=== PATIENT | female | born 1980 | race Caucasian/White ===

== ENCOUNTER 2019-01-01 17:16 | Emergency (ER) | payer OTHER ==
[~2019-01-01] VITALS: Ht 170.2 cm; Wt 94.3 kg
[2019-01-01] MEDS ORDERED: KEFLEX500 MG PO (19:13)
== END 2019-01-01 19:32 | disposition home or self-care (01) ==
LOC: ED 17:16
DX: N39.0 Urinary tract infection, site not specified (principal); K59.00 Constipation, unspecified; Z88.8 Allergy status to other drugs, medicaments and biological substances
CPT/HCPCS: 74018; 80053; 81001; 83690; 85025; 87077; 87088; 87186; 96361; 96374; 99284-25; J1885; J7030

== ENCOUNTER 2019-09-03 08:39 | Day surgery (SDC) | payer OTHER ==
[~2019-09-03] VITALS: Ht 170.2 cm; Wt 83.0 kg
[~2019-09-03 08:39] MED LIST: KEFLEX500 MG PO; MULTI VITAMIN1 EACH PO; NORCO 5-325 TA1 EACH PO
--- NOTE | 2019-09-03 09:22 | NUR ---
PATIENT AMBULATED TO ROOM WITH , REPORTS PAIN CHRONICALLY AT A 4 IN RIGH R SIDE. ANSWERED QUESTIONS AND CONCERNS. CALL LIGHT WITHIN REACH.
--- NOTE | 2019-09-03 15:34 | NUR ---
PATIENT CONTINUES TO WAIT TO GO BACK TO OR FOR SURGERY. PATIENT SEWING IN ROOM FAMILY AT BEDSIDE. CALL LIGHT WITHIN REACH, NO OTHER NEEDS AT THIS TIME.
--- NOTE | 2019-09-03 17:35 | NUR ---
09/03/19 1735 Lillian Acuna 1723- PT ARRIVES TO PACU NONAROUSABLE TO NOXIOUS STIMULI. RESP EVEN AND UNLABORED. PT IS SNORING AND NEEDS A JAW LIFT TO MAINTAIN A CLEAR AIRWAY. OXYGEN SAT HIGH 90'S TO 100% ON 6L VIA MASK. 1726- PT'S HEAD POSITIONED TO HER LEFT SIDE. SNORING CLEARED. JAW LIFT STOPPED.
[2019-09-03] MEDS ORDERED: IBUPROFEN600 MG PO (17:36)
[2019-09-03] MEDS ORDERED: TYLENOL EXTRA500 MG PO (17:37)
[2019-09-03] MEDS ORDERED: OXYCODON-ACETA1 EAC2 PO (17:37)
--- NOTE | 2019-09-03 18:05 | NUR ---
PT TO ROOM 114 FROM PACU AT THIS TIME. ALERT AND ORIENTED NO DISTRESS NOTED. PT FAMILY IN ROOM
--- NOTE | 2019-09-03 18:14 | NUR ---
pt up to bathroom at this time. one person sba.
--- NOTE | 2019-09-03 18:42 | NUR ---
PT REPORTS 7/10 PAIN AND REPORTS THAT SHE HAS HAD PERCOCET BEFORE WITH OUT ISSUE. 1 TAB PO PERCOCET GIVEN AT THIS TIME.
--- NOTE | 2019-09-03 19:20 | NUR ---
REPORT RECEIVED FROM DAY SHIFT RN. PT LYING IN BED, ALERT AND ORIENTED. DENIES PAIN OR NAUSEA. SCD'S IN PLACE. DENIES FURTER NEEDS AT THIS TIME. CALL LIGHT IN REACH.
--- NOTE | 2019-09-03 19:54 | NUR ---
PT UP AMBULATING IN [place] WITH ASSISTANCE FROM FRIEND. STATES SHE FEELS STEADY ON HER FEET. APPLE JUICE GIVEN PER PT REQUEST.
--- NOTE | 2019-09-03 20:20 | NUR ---
PT RESTING IN BED, DROWSY BUT AWAKENS EASILY TO VOICE. SIGNIFICANT OTHER AT BEDSIDE. PT STATES SHE AMBULATED TO THE BR TO VOID WITH HELP FROM SO. SCOPE SITES X 3 WITH SOME DRAINAGE NOTED ON STERI-STRIPS. REINFORCED WITH GAUZE AND PAPER TAPE. UMBILICAL SITE COVERED WITH BANDAID, CDI. ABD SOFT, PT DENIES NAUSEA. STATES PAIN IS A 6/10 BUT WILL WAIT FOR ADDITIONAL PAIN MED UNTIL SHE PICKS UP HER SCRIPT FROM THE PHARMACY. NO OTHER QUESTIONS OR CONCERNS AT THIS TIME.
--- NOTE | 2019-09-03 20:50 | NUR ---
DISCHARGE INSTRUCTIONS GIVEN. PT AND SIGNIFICANT OTHER STATE THEY UNDERSTAND DISCHARGE INSTRUCTIONS, DENY ANY FURTHER QUESTIONS. SL REMOVED, TIP IN TACT. SCOPE SITES X 3 REINFORCED WITH GAUZE AND PAPER TAPE. UMBILICUS DRESSING CDI. PT DENIES NAUSEA. PAIN IS ACCEPTABLE AT THIS TIME. WARM BLANKETS AND APPLE JUICE GIVEN UPON DISCHARGE. [employer] WHEELED PT OUT TO CAR WHERE SIGNIFICANT OTHER WAS WAITING.
--- NOTE | 2019-09-04 08:56 | OR ---
[facility] [address] [place], [place] [address] Signed DATE OF OPERATION: 09/03/2019 SURGEON: Ed Sharp MD PREOPERATIVE DIAGNOSES: 1. Chronic calculous cholecystitis. 2. Family history of malignant hyperthermia (two aunts and one uncle). POSTOPERATIVE DIAGNOSES: 1. Chronic calculous cholecystitis. 2. Family history of malignant hyperthermia (two aunts and one uncle). PROCEDURES: 1. Laparoscopic cholecystectomy with intraoperative cholangiogram. 2. Surgeon-directed fluoroscopy. ANESTHESIA: General endotracheal; Ginger Christiane, MANAGING COGNITIVE ENGINEER, and local 10 mL of 0.25% Marcaine with epinephrine. INDICATION: This 39-year-old white woman is a patient of [facility] Goddard. She and her have noted that the patient has had considerable problems for the past many months including weight loss and initially thought at risk for lymphoma. A small lymph node in the left axilla 2.6 cm in size was noted. A CT scan showed no such finding of disseminated adenopathy. Upon close reflection, her symptoms have included abdominal pain, bloating, postprandial pain in the upper abdomen highly consistent with biliary disease. On that basis, her primary provider, Diamond Suh, did obtain a gallbladder ultrasound, which did show what appeared to be adherent stones of the gallbladder. She is considered to have calculous cholecystitis on that basis. She is admitted at this time to undergo cholecystectomy preferred by laparoscopic approach. She understands the risks of bleeding, infection, need for open procedure, common duct injury and most importantly failure to cure her symptoms entirely. She understands that she wished to proceed. Of special note, she mentioned in the preoperative area that she does have family history of malignant hyperthermia. This was in two aunts and one uncle. She has undergone anesthesia in the past, but is uncertain what measures were taken in her case. She has not been tested for malignant hyperthermia. On that basis with close conference with the claims agent right of way, the anesthesia machine has been flushed for a number of hours with pure oxygen so as to minimize chances of cross contaminating gas for an Electronically Signed By: ED SHARP MD 09/04/19 0856 PATIENT NAME: ANAMIKA WILLINGHAM OPERATIVE REPORT DATE OF : 76 REPORT #: [id number] PHYSICIAN: ED SHARP MD PCP: DIAMOND SUH PA-C REPORT IS CONFIDENTIAL AND NOT TO BE RELEASED WITHOUT AUTHORIZATION [facility] [address], [place] [address] Signed unknown, but possible risk for malignant hyperthermia herself. FINDINGS: She had no evidence pre, intra, or postoperatively of malignant hyperthermia. Inspection of the gallbladder did show to be chronically inflamed and once excised showed several cholesterol stones that were adherent to the mucosa and chronic inflammatory change of mucosa itself. Cholangiogram was normal. Liver was normal. No other findings of concern. DESCRIPTION OF PROCEDURE: The patient was brought to the operating room, given a general endotracheal anesthetic. Preoperative antibiotic Ancef was given. Sequential compression device stockings used and heparin subcutaneously administered. The abdomen was clipped and prepared with chlorhexidine solution and draped sterilely. An infraumbilical incision was made and using an open Val cannula technique, pneumoperitoneum was achieved to a level of 14 mmHg of carbon dioxide gas. Intraabdominal inspection showed no sign of ascites or carcinomatosis. The gallbladder was visualized and chronically inflamed. Liver appeared normal. Three additional trocars were placed in usual configuration in the subxiphoid, right midclavicular, and right anterior axillary line. The gallbladder was elevated cephalad and retracted laterally, showing good anatomy. Using blunt and electrocautery dissection, the triangle of Calot was dissected free identifying well the cystic duct which was relatively long and diminutive. A clip was applied across gallbladder-cystic duct junction and transverse choledochotomy made in the cystic duct. Egress of clear bile was noted upon retrograde milking of the duct. Using an Newton type cholangiocatheter, intraoperative cholangiography was undertaken showing free flow of contrast in biliary tree with prompt emptying into the duodenum. Retrograde filling to the common hepatic duct was noted. Extensive arborization of the biliary tree was not noted as there was profound antegrade flow through the ampulla. The catheter was removed and the cystic duct was triply clipped and divided. The gallbladder was then dissected free in a retrograde fashion using electrocautery. The gallbladder was extracted through the infraumbilical port site without problem, opened on the back table and found to have several bits of yellow cholesterol debris type stones. Chronic and subacute inflammatory changes of mucosa was noted as well. There was no sign of neoplasm. Irrigation was undertaken in subhepatic space showed no sign of bleeding, bile leak, or other problems. Trocars were then removed under direct visualization showing no sign of bleeding. The infraumbilical fascial incision was reapproximated with interrupted 0 Vicryl suture. All wounds were copiously irrigated with saline solution. Skin closed with interrupted 3-0 Vicryl. Steri-Strips were Electronically Signed By: ED SHARP MD 09/04/19 0856 PATIENT NAME: ANAMIKA WILLINGHAM OPERATIVE REPORT DATE OF : [birth year] REPORT #: [id number] PHYSICIAN: ED SHARP MD PCP: DIAMOND SUH PA-C REPORT IS CONFIDENTIAL AND NOT TO BE RELEASED WITHOUT AUTHORIZATION [facility] [address] [place] [address] Signed applied. The patient was ultimately extubated and transferred to recovery room in good condition and having suffered no complications. Sponge, needle, and instrument counts were reported as correct x3. MD KENYON Srinivasan/MARY /[id number] cc: Diamond Suh PA-C Copies: DIAMOND SUH PA-C ~ Electronically Signed By: ED SHARP MD 09/04/19 0856 PATIENT NAME: ANAMIKA WILLINGHAM OPERATIVE REPORT DATE OF : [birth year] REPORT #: [id number] PHYSICIAN: ED SHARP MD PCP: DIAMOND SUH PA-C REPORT IS CONFIDENTIAL AND NOT TO BE RELEASED WITHOUT AUTHORIZATION
--- NOTE | 2019-09-06 16:09 | PATH ---
[facility] [address] [place], [place] [address] Signed SPECIMEN(S): A GALLBLADDER SPECIMEN SOURCE: A. GALLBLADDER CLINICAL HISTORY: Calculous cholecystitis. FINAL PATHOLOGIC DIAGNOSIS: Gallbladder, cholecystectomy: - Chronic cholecystitis with polypoid cholesterolosis. NAL:caw:C2NR MICROSCOPIC EXAMINATION: Histologic sections of all submitted blocks are examined by light microscopy. These findings, together with the gross examination, support the pathologic diagnosis. GROSS DESCRIPTION: The specimen is received in a formalin filled specimen container labeled "SW". A previously opened gallbladder is 5.7 x 2 cm. The serosa is smooth and rsoe. The cystic duct surgical margin is patent. The wall averages 0.3 cm. The mucosa is green rose and velvety and has scattered nodular polypoid excrescences ranging from 0.2-0.5 cm. There are no calculi within the lumen, cystic duct or specimen container. Four sales representative education courses sections are submitted in cassette A1. GW (under the direct supervision of a pathologist) The Gross Description was prepared using a voice recognition system. The report was reviewed for accuracy; however, sound-alike word errors, addition and/or deletions may occur. If there is any question about this report, please contact Client Services. PERFORMING LABORATORY: The technical component was performed by [employer], [address] [place] [id number] (Recovery Engineer: Gina Alfaro MD; CLIA# [id number]). [facility] [address] [address] (Recovery Engineer: Meliton Monk MD; CLIA# [id number]). Diagnostician: Abbi Enamorado MD PATIENT NAME: ANAMIKA WILLINGHAM PATHOLOGY DATE OF : [birth year] REPORT #: [id number] PHYSICIAN: [facility] PCP: SHIVA ROJAS PA-C REPORT IS CONFIDENTIAL AND NOT TO BE RELEASED WITHOUT AUTHORIZATION [address] [address] Signed Pathologist Electronically Signed 09/06/2019 Copies: ~ PATIENT NAME: ANAMIKA WILLINGHAM PATHOLOGY DATE OF : 76 REPORT #: [id number] PHYSICIAN: [facility] PCP: SHIVA ROJAS PA-C REPORT IS CONFIDENTIAL AND NOT TO BE RELEASED WITHOUT AUTHORIZATION
== END 2019-09-03 20:45 | disposition home or self-care (01) ==
LOC: DS 08:39 → MS 18:00 → DS 20:45
PROVIDERS: Surgery
PROC: BF13YZZ Fluoroscopy of Gallbladder and Bile Ducts using Other Contrast (ICD-10-PCS; 2019-09-03)
PROC: 0FT44ZZ Resection of Gallbladder, Percutaneous Endoscopic Approach (ICD-10-PCS; principal; 2019-09-03 11:30)
DX: K81.1 Chronic cholecystitis (principal); J45.909 Unspecified asthma, uncomplicated; I10 Essential (primary) hypertension; R63.4 Abnormal weight loss; F32.9 Major depressive disorder, single episode, unspecified; Z88.8 Allergy status to other drugs, medicaments and biological substances
CPT/HCPCS: 00790; 74300; 80053; 82247; 82465; 83615; 84100; 84478; 84550; 85025; J0690; J1100; J1644; J1885; J2250; J2270; J2405; J2704; J3475; J7121; Q9967

== ENCOUNTER 2021-04-13 14:58 | Emergency (ER) | payer OTHER ==
[~2021-04-13] VITALS: Ht 170.2 cm; Wt 83.0 kg
[~2021-04-13 14:58] MED LIST changes: +IBUPROFEN600 MG PO; +OXYCODON-ACETA1 EAC2 PO; +TYLENOL EXTRA500 MG PO
--- OUTSIDE RECORDS SUMMARY | 2021-04-13 15:00 | XMS ---
PreManage Notification: ANAMIKA WILLINGHAM Security Rocket Scientist Events No recent Security Events currently on file CRITERIA MET - PDMP CARE PROVIDERS MECHELLE SUN [facility] Medicine: Geriatric Medicine Current PHONE: Unknown Oksana has no Care Guidelines for this patient. EShen VISIT COUNT (12 MO.) 1 [facility] TOTAL 1 NOTE: Visits indicate total known visits. ED/UCC VISIT TRACKING (12 MO.) 04/13/2021 14:58 [facility] [place] TYPE: Emergency COMPLAINT: - ABD PAIN INPATIENT VISIT TRACKING (12 MO.) No inpatient visits to display in this time frame [email or web address]
[2021-04-13] MEDS ORDERED: NEURONTIN300 MG PO (15:45)
[2021-04-13] MEDS ORDERED: AMITRIPTYLINE H25 MG PO (15:47)
== END 2021-04-13 19:44 | disposition home or self-care (01) ==
LOC: ED 14:58
DX: N20.0 Calculus of kidney (principal); Z87.891 Personal history of nicotine dependence; Z88.8 Allergy status to other drugs, medicaments and biological substances; Z79.899 Other long term (current) drug therapy
CPT/HCPCS: 74177; 80053; 81001; 83690; 85025; 96375; 99284-25; J1170; J2405; J7030; Q9967

== ENCOUNTER 2021-06-12 09:23 | Emergency (ER) | payer OTHER ==
[~2021-06-12] VITALS: Ht 170.2 cm; Wt 73.9 kg
[~2021-06-12 09:23] MED LIST changes: +AMITRIPTYLINE H25 MG PO; +NEURONTIN300 MG PO
--- OUTSIDE RECORDS SUMMARY | 2021-06-12 09:26 | XMS ---
PreManage Notification: ANAMIKA WILLINGHAM Security Shoe Folder Events No recent Security Events currently on file CRITERIA MET - PDMP CARE PROVIDERS STEPHEN DEGROOT [facility] 04/15/2021-Current PHONE: [phone] MECHELLE SUN [facility] Medicine: Geriatric Medicine Current PHONE: Unknown Oksana has no Care Guidelines for this patient. Abdullahi VISIT COUNT (12 MO.) [facility]ony [facility] TOTAL 2 NOTE: Visits indicate total known visits. ED/UCC VISIT TRACKING (12 MO.) 06/12/2021 09:23 [facility] TYPE: Emergency COMPLAINT: - ABD PAIN, VOMITING 04/13/2021 14:58 [facility] [place] TYPE: Emergency COMPLAINT: - ABD PAIN DIAGNOSES: - Personal history of nicotine dependence - Unspecified abdominal pain - Allergy status to other drugs, medicaments and biological substances - Calculus of kidney - Other residential (current) drug therapy INPATIENT VISIT TRACKING (12 MO.) No inpatient visits to display in this time frame [email or web address]
[2021-06-12] MEDS ORDERED: DILAUDID2 MG PO (17:45)
[2021-06-12] MEDS ORDERED: ZOFRAN4 MG PO (17:45)
[2021-06-12] MEDS ORDERED: DICYCLOMINE HCL10 MG PO (17:45)
== END 2021-06-12 17:55 | disposition home or self-care (01) ==
LOC: ED 09:23
DX: R10.10 Upper abdominal pain, unspecified (principal); E87.6 Hypokalemia; M79.7 Fibromyalgia; Z87.891 Personal history of nicotine dependence; Z20.822 Contact with and (suspected) exposure to COVID-19; Z79.899 Other long term (current) drug therapy; Z88.8 Allergy status to other drugs, medicaments and biological substances
CPT/HCPCS: 74174; 80053; 81001; 83690; 83735; 84703; 85025; 96375; 96376; 99284-25; J1170; J1200; J2405; Q9967; U0003

== ENCOUNTER 2021-12-20 00:10 | Emergency (ER) | payer OTHER ==
[~2021-12-20] VITALS: Ht 170.2 cm; Wt 66.7 kg
[~2021-12-20 00:10] MED LIST changes: +BUPRENORPHINE HC2 MG SL; +BUPROPION XL150 MG PO; +DICYCLOMINE HCL10 MG PO; +DILAUDID2 MG PO; +DOTTI1 EAC4 TD; +ZOFRAN4 MG PO
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
[2021-12-20] MEDS ORDERED: PERCOCET 5-3251 EACH PO (03:11)
== END 2021-12-20 03:42 | disposition home or self-care (01) ==
LOC: ED 00:10
DX: S32.019A Unspecified fracture of first lumbar vertebra, initial encounter for closed fracture (principal); Z87.891 Personal history of nicotine dependence; Z88.8 Allergy status to other drugs, medicaments and biological substances; Z79.899 Other long term (current) drug therapy; Z20.822 Contact with and (suspected) exposure to COVID-19; V48.5XXA Car driver injured in noncollision transport accident in traffic accident, initial encounter
CPT/HCPCS: 36415; 70450; 72125; 72131; 74177; 80048; 84703; 85025; 85610; 96374; 96375; 99284-25; C9803; J1170; J1790; J2405; J3010; Q9967; U0003

== ENCOUNTER 2023-11-14 06:07 | Day surgery (SDC) | payer OTHER ==
[~2023-11-14] VITALS: Ht 170.2 cm; Wt 68.1 kg
[~2023-11-14 06:07] MED LIST changes: +ESTRACE1 MG PO; +IMITREX100 MG PO; +LACTATED RINGER'S 1,000 ML IV SCH; +LAMICTAL150 MG PO; +PERCOCET 5-3251 EACH PO
[2023-11-14] MEDS ORDERED: MINIPRESS2 MG (06:34)
[2023-11-14 06:47] VITALS: BP 105/77
[2023-11-14] MEDS ORDERED: iopamidoL 30 ML VIAL ONE (06:53)
[2023-11-14] MEDS ORDERED: LIDOCAINE HCL 1% 5 ML SDV INJ ONE (07:00)
[2023-11-14] MEDS ORDERED: levoFLOXacin 500 MG/100 ML BAG IV SCH (07:00)
[2023-11-14] MEDS ORDERED: IBLOOD GLUCOSE TEST STRIP 1 EA TEST VI PRN ×2 (07:00→08:00)
[2023-11-14] MEDS ORDERED: KETOROLAC TROMETHAMINE 30 MG/ML VIAL ONE (07:13)
[2023-11-14] MEDS ORDERED: LIDOCAINE HCL 2% 20 MG/ML VIAL INJ ONE (07:13)
[2023-11-14] MEDS ORDERED: MIDAZOLAM HCL 2 MG/2 ML VIAL ONE (07:13)
[2023-11-14] MEDS ORDERED: DEXAMETHASONE SOD PHOS 4 MG/ML VIAL ONE (07:13)
[2023-11-14] MEDS ORDERED: propofoL 200 MG/20 ML VIAL ONE ×2 (07:13→08:27)
[2023-11-14] MEDS ORDERED: ondansetron HCL 4 MG/2 ML VIAL ONE (07:13)
[2023-11-14] MEDS ORDERED: ACETAMINOPHEN 1,000 MG/100 ML VIAL ONE (07:13)
[2023-11-14] MEDS ORDERED: fentaNYL citrate 100 MCG/2 ML VIAL ONE (07:14)
[2023-11-14] MEDS ORDERED: KETOROLAC TROMETHAMINE 15 MG/ML VIAL IV PRN (07:30)
[2023-11-14] MEDS ORDERED: OXYCODONE/APAP 5/325 TAB PO PRN (07:30)
[2023-11-14] MEDS ORDERED: PHENAZOPYRIDINE HCL 95 MG TAB PO PRN (07:30)
[2023-11-14] MEDS ORDERED: ondansetron HCL 4 MG/2 ML VIAL IV PRN ×2 (07:30→08:00)
[2023-11-14] MEDS ORDERED: ondansetron HCL 4 MG TAB PO PRN (07:30)
[2023-11-14] MEDS ORDERED: HYDROmorphone HCL 1 MG/ML SYR IV PRN ×2 (07:30→08:00)
[2023-11-14] MEDS ORDERED: KETAMINE in NS 50 MG/5 ML SYR ONE (07:50)
[2023-11-14] MEDS ORDERED: droPERidol 5 MG/2 ML VIAL IV PRN (08:00)
[2023-11-14] MEDS ORDERED: fentaNYL citrate 100 MCG/2 ML VIAL IV PRN (08:00)
[2023-11-14] MEDS ORDERED: NALOXONE HCL 0.4 MG SYR IV PRN (08:00)
[2023-11-14] MEDS ORDERED: LACTATED RINGER'S 1,000 ML IV ONE (08:19)
[2023-11-14 09:18] VITALS: BP 120/86
[2023-11-14 10:05] VITALS: BP 142/94
--- NOTE | 2023-11-14 18:57 | OR ---
[facility] [address] [facility] [place], [place] [address] Signed DATE OF OPERATION: 11/14/2023 SURGEON: Toya Crawford MD PREOPERATIVE DIAGNOSES: 1. Intermittent left flank pain. 2. 4 mm left renal calculus. POSTOPERATIVE DIAGNOSES: 1. Intermittent left flank pain. 2. 4 mm left renal calculus. NAMES OF PROCEDURES: 1. Diagnostic cystoscopy with left retrograde pyelogram. 2. Flexible nephroureteroscopy with basket extraction of left renal calculus. 3. Insertion of a left-sided indwelling double-J ureteral stent. ANESTHESIA: General. ESTIMATED BLOOD LOSS: Minimal. COMPLICATIONS: None. SPECIMENS: Left renal calculus sent to the lab for stone analysis. DRAINS: A 5 x 26 cm double-J ureteral stent inserted into the left collecting system. INDICATIONS FOR PROCEDURE: Veronica is a very pleasant 43-year-old female, who is well-known to me. She has undergone a complicated left ureteroscopy in the past for extraction of a 14 mm renal calculus. In late 2022, the patient contacted me with complaints of severe intermittent left-sided flank pain and nausea. She underwent a CT scan in September 2023, which revealed a 4 mm nonobstructing left renal calculus located in the lower pole of the left kidney. No other significant stones were visualized. At the time I informed the patient that I did not think that this relatively small stone could be causing her flank pain, and so the Electronically Signed By: TOYA CRAWFORD MD 11/14/23 1857 PATIENT NAME: VERONICA WILLINGHAM OPERATIVE REPORT DATE OF : 76 REPORT #: [id number] PHYSICIAN: TOYA CRAWFORD MD PCP: STEPHEN DEGROOT MD REPORT IS CONFIDENTIAL AND NOT TO BE RELEASED WITHOUT AUTHORIZATION [address] [address] Signed patient decided to continue with conservative management. In early October, the patient contacted me requesting elective extraction of her 4 mm left renal calculus. After discussion of the risks and benefits, the patient has agreed to proceed today. OPERATIVE FINDINGS: 1. On cystoscopy, there was no evidence of any suspicious masses, lesions, or stones. Bilateral ureteral orifices are in their normal anatomic location effluxing clear urine. There is diffuse vascularity noted on the bladder wall which could be indicative of cystitis. No bladder wall trabeculation is appreciated. 2. Left retrograde pyelogram revealed a normal left kidney with no evidence of any defects or calyceal blunting. I am unable to appreciate the stone as a filling defect in the left renal pelvis. 3. Left flexible nephroscopy was performed and I did appreciate the 4 mm stone in the lower pole of the left kidney. I saw no other significant stones within the left kidney. Otherwise, also no abnormalities in the left renal pelvis. The 4 mm stone was extracted using a Zero tip basket from the left kidney without incident. 4. At the end of procedure, a 5 x 26 cm double-J ureteral stent was inserted in the left collecting system without difficulty. DESCRIPTION OF PROCEDURE: After informed consent was obtained, the patient was taken back to the operating room. She was transferred from the [facility] to the operating room table, where general anesthesia was induced. She was placed in the dorsal lithotomy position and her genitalia were prepped and draped in standard sterile fashion. Using a 30-degree lens on a 22.5-Botswanan introducer, rigid cystoscope was inserted through the urethra and into her bladder under direct visualization. Panendoscopic views of bladder were then obtained. Please see the above findings. Attention was turned to the left ureteral orifice. I passed a 0.035 Sensor wire into the left ureter and up to the left collecting system. Fluoroscopy confirmed adequate placement of the wire. Over the wire, I passed an 11/13 ureteral access sheath into the left collecting system under fluoroscopic guidance. The sheath passed quite easily up into the left kidney. I injected dye through the sheath and into the left kidney. Please see above findings. Once the retrograde pyelogram was complete, I passed a flexible ureteroscope through the sheath and into the left proximal ureter and left kidney. Please see above findings. I was able to easily visualize a 4 mm stone, which was then basketed using a Zero tip basket. I pulled the basket into the sheath and then removed the entire sheath from the left collecting system. The stone was popped out of the sheath and placed in a specimen cup to be sent to the lab for stone analysis. I reinserted the rigid cystoscope into the patient's bladder and then filled it back up so I could easily visualize her left ureteral orifice. I passed a 0.035 Sensor wire into the left ureter and up the left collecting system. Placement of the wire was confirmed on fluoroscopy. Over the wire, I passed a 5-Botswanan x 26 cm double-J ureteral stent into the left collecting system. Electronically Signed By: TOYA CRAWFORD MD 11/14/23 1857 PATIENT NAME: VERONICA WILLINGHAM OPERATIVE REPORT DATE OF : 76 REPORT #: [id number] PHYSICIAN: TOYA CRAWFORD MD PCP: STEPHEN DEGROOT MD REPORT IS CONFIDENTIAL AND NOT TO BE RELEASED WITHOUT AUTHORIZATION [facility] [address] [place] [address] Signed The string on the stent got caught on the cystoscope, so the stent was passed part way up via fluoroscopic guidance. Once the stent was passed, I was able to appreciate an excellent coil within the left collecting system and a very good coil distally in the bladder. The patient's bladder was then drained and the cystoscope was removed. The string attached to the stent was then secured to the patient's lower abdomen. The procedure was then terminated. The patient tolerated the procedure well without any complication. She will now be transferred to the postanesthesia care unit in stable condition. DISPOSITION: I discussed the details of today's procedure with the patient's , Madelyn, and answered all of her questions. She was notified that the stone was extracted in single step without difficulty, and a stent has been successfully placed in her left collecting system. There is a string attached to the stent. secured to her lower abdomen. The patient will need to remove the stent using the string attached on November 17. The patient will be discharged to home today with oxycodone 5 mg one tablet p.o. q.4-6 hours p.r.n. pain dispense #30 along with Levaquin 500 mg one tablet p.o. daily for a total of 7 days. The patient will be scheduled return to clinic in six weeks for urine check and for a postoperative evaluation. MD LOBITO Barrios/MARY /[id number] Copies: ~ Electronically Signed By: TOYA CRAWFORD MD 11/14/23 1857 PATIENT NAME: VERONICA WILLINGHAM OPERATIVE REPORT DATE OF : 76 REPORT #: [id number] PHYSICIAN: TOYA CRAWFORD MD PCP: STEPHEN DEGROOT MD REPORT IS CONFIDENTIAL AND NOT TO BE RELEASED WITHOUT AUTHORIZATION
--- NOTE | 2023-11-14 23:30 | EKG ---
[facility] [address] [facility] [place], [place] [address] Signed Sinus bradycardia Confirmed by Terry Shoemaker M.D. ([id number]) on 11/14/2023 11:30:13 PM Electronically Signed By: TERRY SHOEMAKER MD 11/14/23 2330 PATIENT NAME: ANAMIKA WILLINGHAM Electrocardiogram DATE OF : 76 PHYSICIAN: TERRY SHOEMAKER MD REPORT #: [id number] REPORT IS CONFIDENTIAL AND NOT TO BE RELEASED WITHOUT AUTHORIZATION
[2023-11-16 21:19] LABS: CALCULI MASS 35 mg (())
== END 2023-11-14 10:20 | disposition home or self-care (01) ==
LOC: DS 06:07 → OPS 06:07 → DS 07:30 → OPS 10:20
PROVIDERS: ATTEND Urology
PROC: 0TC18ZZ Extirpation of Matter from Left Kidney, Via Natural or Artificial Opening Endoscopic (ICD-10-PCS; 2023-11-14)
PROC: BT1FZZZ Fluoroscopy of Left Kidney, Ureter and Bladder (ICD-10-PCS; principal; 2023-11-14 07:30)
DX: N20.0 Calculus of kidney (principal); E55.9 Vitamin D deficiency, unspecified; R35.0 Frequency of micturition; Z88.8 Allergy status to other drugs, medicaments and biological substances; Z88.2 Allergy status to sulfonamides; Z79.899 Other long term (current) drug therapy
CPT/HCPCS: 00910; 71046; 74420; 82365; C1769; C2617; J0131; J1100; J1885; J1956; J2250; J2405; J2704; J3010; J3490; J7121; Q9967